=== PATIENT | male | born 1980 | race Hispanic/Latino ===

== ENCOUNTER 2018-08-12 16:20 | Emergency (ER) | payer OTHER ==
[~2018-08-12] VITALS: Ht 180.3 cm; Wt 117.9 kg
[2018-08-12] MEDS ORDERED: LIDOCAINE HCL 1% 2 ML AMP INJ ONE (17:00)
[2018-08-12] MEDS ORDERED: TETANUS/DIPHTHERIA TOX ADULT 0.5 ML SYR IM ONE (17:00)
== END 2018-08-12 17:05 | disposition home or self-care (01) ==
LOC: FSED 16:20
DX: S61.512A Laceration without foreign body of left wrist, initial encounter (principal); W26.0XXA Contact with knife, initial encounter; Y92.008 Other place in unspecified non-institutional (private) residence as the place of occurrence of the external cause
CPT/HCPCS: 90471; 90714; 99284

== ENCOUNTER 2018-08-22 16:49 | Emergency (ER) | payer SELFPAY ==
[~2018-08-22] VITALS: Ht 180.3 cm; Wt 117.9 kg
[2018-08-22] MEDS ORDERED: FAMOTIDINE 20 MG/2 ML VIAL IV STA (17:14)
[2018-08-22] MEDS ORDERED: ONDANSETRON HCL INJ 2 MG/ML VIAL IV STA (17:14)
[2018-08-22] MEDS ORDERED: SODIUM CHLORIDE 0.9% 1000ML 1,000 ML IV ONE (17:15)
== END 2018-08-22 17:18 | disposition home or self-care (01) ==
LOC: FSED 16:49
DX: Z48.02 Encounter for removal of sutures (principal)
CPT/HCPCS: 99282; J2405; J7030; S0630